=== PATIENT | male | born 1995 | race Two or more races ===

== ENCOUNTER 2019-09-24 21:20 | Emergency (ER) | payer OTHER ==
[~2019-09-24] VITALS: Ht 162.6 cm; Wt 74.8 kg
== END 2019-09-24 22:26 | disposition home or self-care (01) ==
LOC: ER 21:20
DX: F41.0 Panic disorder [episodic paroxysmal anxiety] (principal)

== ENCOUNTER 2019-10-22 19:39 | Emergency (ER) | payer OTHER ==
[~2019-10-22] VITALS: Ht 162.6 cm; Wt 73.5 kg
== END 2019-10-22 20:35 | disposition home or self-care (01) ==
LOC: ER 19:39
DX: R06.02 Shortness of breath (principal); F41.1 Generalized anxiety disorder

== ENCOUNTER 2020-02-15 15:25 | Emergency (ER) | payer OTHER ==
[~2020-02-15] VITALS: Ht 162.6 cm; Wt 77.6 kg
== END 2020-02-15 20:45 | disposition home or self-care (01) ==
LOC: ER 15:25
DX: N20.9 Urinary calculus, unspecified (principal); N20.1 Calculus of ureter